=== PATIENT | female | born 1960 | race Caucasian/White ===

== ENCOUNTER 2019-07-02 16:41 | Inpatient (IN) | payer MEDICAID ==
[~2019-07-02] VITALS: Ht 157.5 cm; Wt 109.1 kg
[~2019-07-02 16:41] MED LIST: ALBU18HF2 INH; CYCL-1 PO; DIPH-423 PO; EPIN0.3P3 IM; GABA-532 PO; IBUP-1984 PO; LEVO175T2 PO; LORA-641 PO; PANT-47 PO; PROP10TA10 PO; ROPI1TAB2 PO; TRAM50TA2 PO
[2019-07-02 17:02] LABS: BASOPHILS % (AUTO) 0.3 % (0-1); EOSINOPHILS # (AUTO) 0.2 X10'3 (0-0.9); EOSINOPHILS % (AUTO) 2.2 % (0-6); HEMATOCRIT 47.5 % (35.0-45.0); HEMOGLOBIN 15.7 g/dl (12.0-16.0); LYMPHOCYTES # (AUTO) 2.5 X10'3 (1.1-4.8); LYMPHOCYTES % (AUTO) 25.9 % (21-51); MEAN CORPUSCULAR HEMOGLOBIN 28.7 PG (27.0-31.0); MEAN CORPUSCULAR HGB CONC 33.1 g/dL (33.0-36.5); MEAN CORPUSCULAR VOLUME 86.7 FL (78-98); MEAN PLATELET VOLUME 9.2 FL (7.4-10.4); MONOCYTES # (AUTO) 0.5 X10'3 (0-0.9); MONOCYTES % (AUTO) 5.2 % (2-12); NEUTROPHILS # (AUTO) 6.5 X10'3 (1.8-7.7); NEUTROPHILS % (AUTO) 66.4 % (42-75); PLATELET COUNT 238 X10'3 (140-440); RED BLOOD COUNT 5.48 X10'6 (4.20-5.60); RED CELL DISTRIBUTION WIDTH 13.8 % (11.5-14.5); WHITE BLOOD COUNT 9.9 X10'3 (4.5-11.0)
--- NOTE | 2019-07-02 17:02 | NUR ---
ARRIVED FOR LEVEL 1 STROKE WITH ONSET AT 1500. PT TAKING A SHOWER AND SUDDENLY DEVELOPED RIGHT ARM AND RIGHT LEG WEAKNESS WITH DIFFICULTY SPEAKING. PT ABLE TO GET OUT OF SHOWER AND TELL SONE "SOMETHING WAS WRONG." C/O A HEADACHE FOR PAST 4 DAYS BUT DENIES ANY DIFFICULTIES SPEAKING OR WEAKNESS PRIOR TO 3PM TODAY. CT IS + FOR STROKE IN THE LEFT BASAL GANGLIA. CURRENTLY DOES EXHIBIT SOME EXPRESSIVE APHASIA AND A DRIFT IN BOTH THE RIGHT ARM AND RIGHT LEG. SAYS RIGHT ARM FEELS " TINGLING" AND QUESTIONABLE RIGHT LEG TINGLING WELL. PT IS ALERT AND ARTICULATES PER HER NORM. 1734 TELE NEURO EXAM COMPLETED WITH DR DEVI. NOT A TPA CANDIDATE PER DR DEVI. WILL PROCEED WITH CTA HEAD AND NECK AND START PLAVIX PT IS ALLERGIC TO ASPIRIN. BSS DONE PER MACHINIST HELPER MARINE.
[2019-07-02 17:12] LABS: PARTIAL THROMBOPLASTIN TIME 25 SECONDS (22-32)
[2019-07-02 17:14] LABS: ALANINE AMINOTRANSFERASE 25 U/L (12-78); ALBUMIN 3.4 G/DL (3.4-5.0); ALBUMIN/GLOBULIN RATIO 0.9 (1.1-1.5); ALKALINE PHOSPHATASE 86 IU/L (46-116); ANION GAP 10 (8-16); ASPARTATE AMINO TRANSFERASE 24 U/L (10-37); BILIRUBIN,TOTAL 0.5 MG/DL (0.1-1.0); BLOOD UREA NITROGEN 19 MG/DL (7-18); BUN/CREATININE RATIO 15.8 (6.6-38.0); CALCIUM 9.8 MG/DL (8.5-10.1); CHLORIDE 104 MMOL/L (99-107); GLUCOSE 130 MG/DL (70-104); POTASSIUM 3.9 MMOL/L (3.5-5.1); SODIUM 143 MMOL/L (135-145); TOTAL CARBON DIOXIDE 28.7 MMOL/L (24-32); TOTAL PROTEIN 7.2 G/DL (6.4-8.2); eGFR 46 ML/MIN
[2019-07-02] MEDS ORDERED: DIPH25TA27 PO (17:23)
--- NOTE | 2019-07-02 17:30 | NUR ---
SPEECH IS FLUENT MOST OF THE TIME, SLURS AT TIMES. AWAITING CT OF HEAD AND NECK
[2019-07-02] MEDS ORDERED: MULT-384 PO (17:33)
[2019-07-02] MEDS ORDERED: VITA1TAB37 PO (17:33)
[2019-07-02] MEDS ORDERED: FISH12002 PO (17:33)
[2019-07-02] MEDS ORDERED: CHOL10006 PO (17:33)
[2019-07-02] MEDS ORDERED: BIOT10TA PO (17:33)
[2019-07-02] MEDS ORDERED: iohexol 350MG/ML 100ml bottle IV ONE (17:49)
--- NOTE | 2019-07-02 18:13 | NUR ---
Pt returned from CT scan, remains stable. Still with some right side weakness but improving. Pt was able to transfer with minimal assistance required.
[2019-07-02] MEDS ORDERED: clopidogrel 75mg tablet PO ONE (18:20)
--- NOTE | 2019-07-02 18:31 | NUR ---
Report to Teresa smith RN.
[2019-07-02] MEDS ORDERED: acetaminophen 325mg tablet PO ONE (18:40)
[2019-07-02 19:04] LABS: CLARITY,URINE CLEAR (Clear); COLOR,URINE YELLOW (Yellow); GLUCOSE, URINE NEGATIVE (Neg); KETONES,URINE NEGATIVE (Neg); LEUKOCYTE ESTERASE ,URINE NEGATIVE (Neg); NITRITES, URINE NEGATIVE (Neg); OCCULT BLOOD,URINE NEGATIVE (Neg); PH,URINE 5.5 (4.8-8.0); PROTEIN,URINE NEGATIVE (Neg); UROBILINOGEN,URINE 0.2 E.U/dL (0.2-1.0)
[2019-07-02 19:12] LABS: URINE AMPHETAMINE SCREEN NEGATIVE (Neg); URINE BARBITUATE SCREEN NEGATIVE (Neg); URINE BENZODIAZEPINES SCREEN NEGATIVE (Neg); URINE CANNABINOID SCREEN NEGATIVE (Neg); URINE COCAINE SCREEN NEGATIVE (Neg); URINE METHADONE SCREEN NEGATIVE (Neg); URINE OPIATE SCREEN NEGATIVE (Neg); URINE PHENCYCLIDINE SCREEN NEGATIVE (Neg)
[2019-07-02 19:28] LABS: UA COLLECTION TYPE CLN CATCH MIDSTREAM
[2019-07-02] MEDS ORDERED: potassium CL 10mEq/100ml bag 100 ML IV PRN ×2 (19:30)
[2019-07-02] MEDS ORDERED: ondansetron/PF 4mg/2ml inj IV PRN (19:30)
[2019-07-02] MEDS ORDERED: magnesium Cl slow-release 64mg tablet PO PRN (19:30)
[2019-07-02] MEDS ORDERED: magnesium 2GM in 50ml NS 50 ML IV PRN (19:30)
[2019-07-02] MEDS ORDERED: magnesium 4gm in 100ml NS 100 ML IV PRN (19:30)
[2019-07-02] MEDS ORDERED: potassium Cl 20 mEq SR tablet PO PRN ×2 (19:30)
--- NOTE | 2019-07-02 19:31 | NUR ---
Pt reports improvement in symptoms. Pt noted to have equal adobe architect strength bilaterally. No deficit noted in either right upper or lower extremities.
[2019-07-02 20:00] LABS: CHOL/HDL RATIO 3.9 (0.00-4.99); CHOLESTEROL 188 MG/DL (0-200); HDL CHOLESTEROL 48 MG/DL (35-60); LDL CHOLESTEROL 122 MG/DL (50-100); TRIGLYCERIDES 89 MG/DL (20-135)
[2019-07-02] MEDS: K and/or MAG REPLACEMENT MC SCH (20:00)
--- NOTE | 2019-07-02 21:03 | NUR ---
Spoke with Dr. Davenport regarding Pt NPO status. made aware Pt has had nothing to eat since yesterday and Pt passed swallow eval. TORB for heart healthy diet.
--- NOTE | 2019-07-02 21:50 | NUR ---
Received report from Elia FERNANDEZ from ED. Patient came up to floor via gurney. Patient able to walk to bed. Bed placed in low position and locked. Call light placed within reach. Patient was accompanied by her son.
[2019-07-02] MEDS ORDERED: albuterol 2.5 MG/3 ML nebule NEB PRN (22:00)
[2019-07-02] MEDS ORDERED: EPINEPHRINE 0.3 MG IM PRN (22:00)
[2019-07-02] MEDS ORDERED: traMADol 50MG tablet PO PRN (22:00)
[2019-07-02] MEDS ORDERED: cyclobenzaprine 10mg tablet PO PRN (22:00)
[2019-07-02 22:11] VITALS: BP 135/75
[2019-07-03 02:00] VITALS: BP 143/70
[2019-07-03 06:00] VITALS: BP 138/80
--- NOTE | 2019-07-03 06:05 | NUR ---
Patient in room [facility] 4021. I have received report from [place] FERNANDEZ and had the opportunity to ask questions and assume patient care.
--- NOTE | 2019-07-03 06:14 | NUR ---
Problems reprioritized. Patient report given, questions answered & plan of care reviewed with Cristal FERNANDEZ.
[2019-07-03 06:40] LABS: BASOPHILS % (AUTO) 0.2 % (0-1); EOSINOPHILS # (AUTO) 0.3 X10'3 (0-0.9); EOSINOPHILS % (AUTO) 2.4 % (0-6); HEMOGLOBIN 14.6 g/dl (12.0-16.0); LYMPHOCYTES # (AUTO) 4.3 X10'3 (1.1-4.8); LYMPHOCYTES % (AUTO) 40.9 % (21-51); MEAN CORPUSCULAR HEMOGLOBIN 29.2 PG (27.0-31.0); MEAN CORPUSCULAR HGB CONC 33.1 g/dL (33.0-36.5); MEAN CORPUSCULAR VOLUME 88.1 FL (78-98); MEAN PLATELET VOLUME 9.5 FL (7.4-10.4); MONOCYTES # (AUTO) 0.8 X10'3 (0-0.9); NEUTROPHILS # (AUTO) 5.1 X10'3 (1.8-7.7); NEUTROPHILS % (AUTO) 48.5 % (42-75); PLATELET COUNT 182 X10'3 (140-440); RED BLOOD COUNT 4.99 X10'6 (4.20-5.60); RED CELL DISTRIBUTION WIDTH 13.6 % (11.5-14.5); WHITE BLOOD COUNT 10.6 X10'3 (4.5-11.0)
[2019-07-03 06:59] LABS: ANION GAP 5 (8-16); BLOOD UREA NITROGEN 18 MG/DL (7-18); BUN/CREATININE RATIO 17.3 (6.6-38.0); CALCIUM 8.7 MG/DL (8.5-10.1); CHLORIDE 104 MMOL/L (99-107); CHOL/HDL RATIO 4.2 (0.00-4.99); CHOLESTEROL 174 MG/DL (0-200); CREATININE 1.04 MG/DL (0.40-0.90); GLUCOSE 99 MG/DL (70-104); HDL CHOLESTEROL 41 MG/DL (35-60); LDL CHOLESTEROL 110 MG/DL (50-100); MAGNESIUM 1.7 MG/DL (1.5-2.4); POTASSIUM 3.9 MMOL/L (3.5-5.1); SODIUM 144 MMOL/L (135-145); TOTAL CARBON DIOXIDE 34.9 MMOL/L (24-32); TRIGLYCERIDES 116 MG/DL (20-135); eGFR 54 ML/MIN
[2019-07-03] MEDS: K and/or MAG REPLACEMENT MC SCH (07:20)
[2019-07-03] MEDS ORDERED: atorvastatin 20mg tablet PO SCH (08:00)
[2019-07-03] MEDS ORDERED: levoTHYROXINE 100mcg tablet PO SCH (08:00)
[2019-07-03] MEDS ORDERED: vitamin B comp w/Vit. C tab 1 TAB TABLET PO SCH (08:00)
[2019-07-03] MEDS ORDERED: pantoprazole 40mg Tablet.DR PO SCH (08:00)
[2019-07-03] MEDS ORDERED: ROPINIRole 0.25mg tablet PO SCH (08:00)
[2019-07-03] MEDS ORDERED: non-formulary drug (Biotin 2 TAB) PO SCH (08:00)
[2019-07-03] MEDS ORDERED: propranolol 10mg tablet PO SCH (08:00)
[2019-07-03] MEDS ORDERED: loratadine 10mg tablet PO SCH (08:00)
[2019-07-03] MEDS ORDERED: gabapentin 300mg capsule PO SCH (08:00)
[2019-07-03] MEDS ORDERED: non-formulary drug (Fish Oil/Borage/Flax/Om3,6,9#1 (Omega 3-6-9 1,200 mg Softgel) 1 CAP) PO SCH (08:00)
[2019-07-03] MEDS ORDERED: vitamin D (cholecalciferol) 1,000 unit tablet PO SCH (08:00)
[2019-07-03] MEDS ORDERED: multivitamins, therapeutics tablet PO SCH (08:00)
[2019-07-03] MEDS ORDERED: clopidogrel 75mg tablet PO SCH (08:00)
--- NOTE | 2019-07-03 11:22 | NUR ---
Student documentation: I have reviewed all interventions, assessments performed and documented by Sabino Morris. Student Medication Administration: For this medication-pass time frame, all medication were reviewed, dispensed, administered and documented per hospital policy by Sabino Morris.
[2019-07-03] MEDS ORDERED: CLOP75TA35 PO (12:02)
[2019-07-03] MEDS ORDERED: ATOR40TA PO (12:02)
--- NOTE | 2019-07-03 13:58 | NUR ---
Pt was discharged by dry pan charger during primary RN's break. Discharge orders were reviewed with pt. Pt was provided information regarding smoking cessation. All of pt's belongings were returned to pt. Pt was wheeled downstairs to be driven home by her son.
== END 2019-07-03 14:00 | disposition home or self-care (01) | DRG 45 ==
LOC: ER 16:41 → ED HOLD 19:28 → EDBEDREQ 21:32 → ORTHO 4S 21:50
PROVIDERS: ADMIT Internal Medicine; ATTEND Hospitalist
PROC: B3251ZZ Computerized Tomography (CT Scan) of Bilateral Common Carotid Arteries using Low Osmolar Contrast (ICD-10-PCS; principal; 2019-07-02)
PROC: B32G1ZZ Computerized Tomography (CT Scan) of Bilateral Vertebral Arteries using Low Osmolar Contrast (ICD-10-PCS; 2019-07-02)
PROC: B3281ZZ Computerized Tomography (CT Scan) of Bilateral Internal Carotid Arteries using Low Osmolar Contrast (ICD-10-PCS; 2019-07-02)
DX: I63.9 Cerebral infarction, unspecified (principal); E66.01 Morbid (severe) obesity due to excess calories; E03.9 Hypothyroidism, unspecified; G25.81 Restless legs syndrome; I10 Essential (primary) hypertension; F17.210 Nicotine dependence, cigarettes, uncomplicated; G89.29 Other chronic pain; M19.90 Unspecified osteoarthritis, unspecified site; M54.2 Cervicalgia; K21.9 Gastro-esophageal reflux disease without esophagitis; Z90.710 Acquired absence of both cervix and uterus; Z88.6 Allergy status to analgesic agent; Z88.1 Allergy status to other antibiotic agents; Z88.0 Allergy status to penicillin; Z79.899 Other long term (current) drug therapy; Z68.41 Body mass index [BMI] 40.0-44.9, adult
CPT/HCPCS: 36415; 70450; 70496; 70498; 70544; 70551; 71045; 80048; 80053; 80061; 80305; 81003; 82948; 83735; 85025; 85610; 85730; 86885; 86900; 86901; 87081; 92508; 92616; 93005; 93306; 94760; 97110; 97116; 97162; 99291; 99292; G0378; Q9967

== ENCOUNTER 2024-01-07 08:04 | Day surgery (SDC) | payer MEDICAID ==
[2024-01-01 11:51] LABS: BASOPHILS % (AUTO) 0.4 % (0-1); EOSINOPHILS # (AUTO) 0.2 X10'3 (0-0.9); EOSINOPHILS % (AUTO) 1.8 % (0-6); LYMPHOCYTES # (AUTO) 1.5 X10'3 (1.1-4.8); LYMPHOCYTES % (AUTO) 14.8 % (21-51); MEAN PLATELET VOLUME 8.6 FL (7.4-10.4); MONOCYTES # (AUTO) 0.7 X10'3 (0-0.9); MONOCYTES % (AUTO) 7.5 % (2-12); NEUTROPHILS # (AUTO) 7.5 X10'3 (1.8-7.7); NEUTROPHILS % (AUTO) 75.5 % (42-75); PRE OP HEMOGLOBIN 12.6 g/dL (12.0-16.0); PRE OP PLATELET COUNT 238 X10'3 (140-440); PRE OP WHITE BLOOD COUNT 9.9 10'3 (4.8-10.8)
[2024-01-01 11:55] LABS: ALBUMIN/GLOBULIN RATIO 0.7 (1.1-1.5); ALKALINE PHOSPHATASE 82 IU/L (46-116); BLOOD UREA NITROGEN 16 MG/DL (7-18); BUN/CREATININE RATIO 18.6 (10.0-20.0); CALCIUM 9.1 MG/DL (8.5-10.1); CHLORIDE 100 MMOL/L (99-107); CREATININE 0.86 MG/DL (0.40-0.90); PRE OP ALT 14 U/L (30-65); PRE OP ANION GAP 3 (8-16); PRE OP AST 13 U/L (10-37); PRE OP BILIRUB, TOTAL 0.2 MG/DL (0.0-1.0); PRE OP GLUCOSE 134 MG/DL (70-104); PRE OP POTASSIUM 3.8 MMOL/L (3.4-5.1); PRE OP SODIUM 140 MMOL/L (135-145); TOTAL CARBON DIOXIDE 36.7 MMOL/L (24-32); TOTAL PROTEIN 7.3 G/DL (6.4-8.2); eGFR 67 ML/MIN
[2024-01-01 12:14] LABS: MEAN CORPUSCULAR HGB CONC 31.8 g/dL (33.0-36.5); PRE OP HEMATOCRIT 40.6 % (35.0-45.0); RED BLOOD COUNT 4.77 X10'6 (4.20-5.60); RED CELL DISTRIBUTION WIDTH 16.2 % (11.5-14.5)
[~2024-01-07] VITALS: Ht 157.5 cm; Wt 111.7 kg
[2024-01-07] VITALS (10 sets, daily range): BP systolic 111–156; BP diastolic 60–88; PULSE 66–88; RESP 9–19; TEMP 99–99.2; O2SAT 87–99
[2024-01-07] MEDS: cefazolin 2gm/D5W 100mL 100 ML IV ONE (05:30)
[2024-01-07] MEDS: DOCUMENT DATE & TIME OF BETA-BLOCKER PO ONE (05:30)
[~2024-01-07 08:04] MED LIST changes: -ALBU18HF2 INH; +ASPI81TA52 PO; +BUDE10.2 INH; +CARB1TAB41 PO; +CETI10TA14 PO; -CYCL-1 PO; -DIPH-423 PO; -EPIN0.3P3 IM; +FURO20TA4 PO; -IBUP-1984 PO; +ISOS30TA84 PO; -LORA-641 PO; +METO-384 PO; +NITR0.4T48 PO; +POTA-206 PO; -PROP10TA10 PO; -ROPI1TAB2 PO
[2024-01-07] MEDS: famotidine 20mg tablet PO ONE (09:13)
[2024-01-07] MEDS: ringers solution, lacted 1,000 ML IV SCH (09:13)
[2024-01-07] MEDS: albuterol 2.5 MG/3 ML nebule NEB ONE (10:05)
[2024-01-07] MEDS: midazolam 1 mg/ML 2ml injection IV ONE (11:05)
[2024-01-07] MEDS ORDERED: BUPIVAcaine/PF 2.5mg/ml (0.25%) 10ml vial ONE (11:16)
[2024-01-07] MEDS ORDERED: LIDOcaine 0.5% (5mg/ml) 50ml vial ONE (11:38)
[2024-01-07] MEDS ORDERED: fentaNYL/PF 50MCG/1 ML 2ML syringe ONE ×2 (11:38→12:19)
[2024-01-07] MEDS ORDERED: midazolam 1 mg/ML 2ml injection ONE ×2 (11:38→12:42)
[2024-01-07] MEDS ORDERED: ketorolac trometh 30MG/ML vial 30 MG/ML VIAL ONE (11:38)
[2024-01-07] MEDS ORDERED: LIDOcaine 1%/PF 5ML 10 MG/ML VIAL ONE (11:38)
[2024-01-07] MEDS ORDERED: propofol 10mg/ml 20ml vial IV ONE (11:40)
[2024-01-07] MEDS: BUPIVAcaine HCl 0.25%/EPInephrine 1:200,000 inj. 10 ML VIAL SQ ONE (12:03)
[2024-01-07] MEDS ORDERED: bacitracin 15gm ointment TP ONE (12:05)
[2024-01-07] MEDS ORDERED: ringers solution, lacted 1,000 ML IV SCH (12:15)
[2024-01-07] MEDS ORDERED: hydrALAZINE 20mg/ml inj. IV PRN (12:15)
[2024-01-07] MEDS ORDERED: labetalol 20mg/4ml (5mg/ml) syringe IV PRN (12:15)
[2024-01-07] MEDS ORDERED: ondansetron/PF 4mg/2ml inj IV PRN (12:15)
[2024-01-07] MEDS: morphine 2 MG/ML inj. syringe IV PRN (13:00)
[2024-01-07] MEDS: morphine 4 MG/ML inj SYRINge IV PRN (13:10)
== END 2024-01-07 13:51 | disposition home or self-care (01) ==
LOC: PAS 08:04
PROVIDERS: ATTEND Orthopaedic Surgery Hand Surgery
DX: G56.02 Carpal tunnel syndrome, left upper limb (principal); M18.12 Unilateral primary osteoarthritis of first carpometacarpal joint, left hand; M65.312 Trigger thumb, left thumb; I11.0 Hypertensive heart disease with heart failure; I50.9 Heart failure, unspecified; I25.119 Atherosclerotic heart disease of native coronary artery with unspecified angina pectoris; E66.01 Morbid (severe) obesity due to excess calories; E03.9 Hypothyroidism, unspecified; K21.9 Gastro-esophageal reflux disease without esophagitis; G43.909 Migraine, unspecified, not intractable, without status migrainosus; J44.9 Chronic obstructive pulmonary disease, unspecified; G62.9 Polyneuropathy, unspecified; I25.2 Old myocardial infarction; Z87.891 Personal history of nicotine dependence; Z79.82 Long term (current) use of aspirin; Z79.890 Hormone replacement therapy; Z79.891 Long term (current) use of opiate analgesic; Z79.899 Other long term (current) drug therapy; Z90.49 Acquired absence of other specified parts of digestive tract; Z90.710 Acquired absence of both cervix and uterus; Z96.651 Presence of right artificial knee joint; Z98.890 Other specified postprocedural states; Z88.1 Allergy status to other antibiotic agents; Z88.6 Allergy status to analgesic agent; Z91.041 Radiographic dye allergy status; Z88.8 Allergy status to other drugs, medicaments and biological substances
CPT/HCPCS: 25310; 25447; 26055; 36415; 64721; 71046; 80053; 82948; 85025; 94640; 94760; J0690; J1885; J2250; J2270; J2704; J3010; J3490; J7030; J7120; Z7506; Z7508; Z7512; A4215; A4615; A4618; A6449; A7000